=== PATIENT | female | born 1965 | race Caucasian/White ===

== ENCOUNTER 2021-11-07 08:38 | Emergency (ER) | payer OTHER ==
[2021-11-07 09:40] LABS: ANION GAP 13.9 mEq/L (7-13); CHLORIDE,CL 104 mmol/L (98-107); SODIUM,NA 141 mmol/L (136-145)
[2021-11-07 10:34] LABS: CORONAVIRUS COVID-19 NAA NEGATIVE (NEGATIVE)
== END 2021-11-07 13:14 | disposition home or self-care (01) ==
LOC: DL.ED 08:38
DX: R55 Syncope and collapse (principal); Z20.822 Contact with and (suspected) exposure to COVID-19
CPT/HCPCS: 0240U; 36415; 71045; 80053; 81003; 83605; 84484; 85025; 87040; 93005; 93010; 99284; 99285-25